=== PATIENT | female | born 2000 | race Hispanic/Latino ===

== ENCOUNTER 2022-07-29 17:06 | Emergency (ER) | payer OTHER, SELFPAY ==
[2022-07-29] MEDS ORDERED: Tetracaine 0.5% PF 4 ML BOT ONE (17:49)
[2022-07-29] MEDS ORDERED: Fluorescein Opthalmic Strip ONE (17:49)
== END 2022-07-29 18:25 | disposition home or self-care (01) ==
LOC: MADERS 17:06
DX: H10.022 Other mucopurulent conjunctivitis, left eye (principal)
CPT/HCPCS: 99283